=== PATIENT | female | born 1975 | race Caucasian/White ===

== ENCOUNTER 2018-02-21 19:48 | Observation (INO) | payer BC ==
[~2018-02-21] VITALS: Ht 154.9 cm; Wt 51.0 kg
--- NOTE | ~2018-02-21 | HEMODYNAMI ---
PATIENT:GRICEL GAMBLE MEDICAL RECORD: [id number] : 77 [facility] DATE: 02/21/18 Generatedon:02/22/201811:02 Patient name: GRICEL GAMBLE Patient #: [id number] SSN: : 1975 Date of study: 02/22/2018 Page: Of Hemodynamic Procedure Report Patient Data Patient Demographics Procedure consent was obtained First Name: GRICEL Gender: Female Last Name: TYE : 1975 Patient #: [id number] Age: 42 year(s) Race: Unknown Additional ID: [id number] Contact details [address]: [address] [place] [address] [address]ET State: [place] City: [place] Zip code: [address] Past Medical History Allergies: No known allergies Admission Admission Data Admission Date: 02/21/2018 Admission Time: 23:10 Room #: [facility] Lab Results Lab Result Date: 02/22/2018 Lab Result Time: 0:00 Biochemistry Name Units Result Min Max BUN mg/dl 13 --(--*-)-- 7 18 Creatinine mg/dl 0.9 --(-*--)-- 0.6 1.3 CBC Name Units Result Min Max Hemoglobin g/dl 13.4 -*(----)-- 13.5 17.5 Procedure Procedure Types Cath Procedure Diagnostic Procedure LHC LHC w/Coronaries Procedure Description Procedure Date Procedure Date: 02/22/2018 Procedure Start Time: 10:45 Procedure End Time: 10:59 Procedure Staff Name Function Jorge Alberto Cardoso MD Performing Physician Chrissy Jeong RT Monitor Norma Bauer RT Scrub Celine Sung RN Nurse Gisel Wayne RN Nurse Procedure Data Cath Procedure Fluoroscopy Diagnostic fluoroscopy Total fluoroscopy Time: 1.1 time: 1.1 min min Diagnostic fluoroscopy Total fluoroscopy dose: 114 dose: 114 mGy mGy Contrast Material Contrast Material Type Amount (ml) Isovue 300 45 Entry Location Entry Primary Successful Side Size Upsize Upsize Entry Closure Succes sful Closure Location (Fr) 1 (Fr) 2 (Fr) Remarks Device Remarks Femoral Right 5 Fr Exoseal artery Estimated blood loss: 5 ml Diagnostic catheters Device Type Used For End Catheter Placement MULTIPACK Pigtail 5 Fr Procedure catheter MULTIPACK JL 4.0 5Fr Procedure catheter MULTIPACK 3DRC 5Fr Procedure catheter Procedure Medications Medication Administration Route Dosage Oxygen etCO2 Nasal cannula 2 l/min Lidocaine 2% added to field 20 Heparin Flush Bag added to field 2 bags (1000units/500ml NS) Zofran I.V. 4 mg 0.9% NaCl I.V. bolus 250 ml Versed I.V. 1 mg Fentanyl I.V. 50 mcg Versed I.V. 1 mg Fentanyl I.V. 50 mcg Hemodynamics Rest HGB: 13.4 (g/dl) Heart Rate: 66 (bpm) Snapshots Pre Cath Intra NCS Post Cath Vital Signs Time Heart Resp SPO2 etCO2 NIBP (mmHg) Rhythm Pain Sedation Rate (ipm) (%) (mmHg) Status Level (bpm) 10:25:35 89 18 99 37.6 117/77(92) NSR 0 (11) 10(A) , No pain 10:30:09 63 13 96 25.5 103/58(73) NSR 0 (11) 10(A) , No pain 10:34:44 61 12 98 26.3 97/39(74) NSR 0 (11) 10(A) , No pain 10:39:16 59 14 98 31.5 92/43(62) NSR 0 (11) 10(A) , No pain 10:43:47 57 13 98 27.8 105/47(74) NSR 0 (11) 10(A) , No pain 10:48:17 70 14 96 21.8 112/62(95) NSR 0 (11) 9(A) , No pain 10:52:51 62 13 96 31.5 120/46(83) NSR 0 (11) 9(A) , No pain 10:58:05 87 10 96 33.8 126/52(108) NSR 0 (11) 10(A) , No pain Medications Time Medication Route Dose Verified Delivered Reason Notes Effectiveness by by 10:25:57 Oxygen etCO2 2 Jorge Alberto Berger used for Nasal l/min Janae Sung collections associate cannula 10:26:04 Lidocaine 2% added 20ml Jorge Alberto Jorge Alberto for local to vial Janae Cardoso MD anesthetic field 10:26:27 Zofran I.V. 4 mg Jorge Alberto Berger Per pt states Janae Sung RN physician nausea with medications 10:26:27 Heparin Flush added 2 Jorge Alberto Jorge Alberto used for Bag to bags Janae Cardoso MD procedure (1000units/500ml field NS) 10:36:37 0.9% NaCl I.V. 250 Jorge Alberto Berger For bolus ml Janae Sung RN hypotension 10:44:37 Versed I.V. 1 mg Jorge Alberto Gisel for Janae Wayne sedation RN 10:44:48 Fentanyl I.V. 50 Jorge Alberto Gisel for mcg Janae Wayne sedation RN 10:51:47 Versed I.V. 1 mg Jorge Alberto Gisel for Janae Wayne sedation RN 10:51:51 Fentanyl I.V. 50 Jorge Alberto Gisel for mcg Janae peña mammography supervisor Log Time Note 10:10:20 Celine Sung RN sent for patient. Start room use. 10:14:06 Time tracking: Regular hours (M-F 7:00 - 5:00) 10:14:10 Plan of Care:Hemodynamics will remain stable., Cardiac rhythm will remain stable., Comfort level will be maintained., Respiratory function will remain adequate., Patient/ family verbilizes understanding of procedure., Procedure tolerated without complication., Recovers from procedure without complications.. 10:14:12 Signed procedure consent form obtained from patient. 10:14:22 H&P Date Dictated: 02/21/2018 Within 30 days and on chart., H&P Addendum completed by physician on day of procedure. (MUST COMPLETE FOR ALL OUTPATIENTS). 10:15:14 Lab Result : BUN 13 mg/dl 10:15:14 Lab Result : Hemoglobin 13.4 g/dl 10:15:14 Lab Result : Creatinine 0.9 mg/dl 10:19:46 Patient received from CVICU to CCL 1 Alert and oriented. Tansferred to table in Supine position. 10:19:48 Warm blankets applied, and kate hugger turned on for patient comfort. 10:19:48 Correct patient and procedure confirmed by team. 10:19:49 ECG and BP/O2 sat monitors applied to patient. 10::46 Vital chart was started 10:24:47 Full Disclosure recording started 10::57 Oxygen 2 l/min etCO2 Nasal cannula was administered by Celine Sung RN; used for procedure; 10::04 Lidocaine 2% 20ml vial added to field was administered by Jorge Alberto Cardoso MD; for local anesthetic; 10::27 Zofran 4 mg I.V. was administered by Celine Sung RN; Per physician; pt states nausea with medications 10:: Heparin Flush Bag (1000units/500ml NS) 2 bags added to field was administered by Jorge Alberto Cardoso MD; used for procedure; 10:29:32 Baseline sample Acquired. 10::36 Rhythm: sinus rhythm 10::41 Pre-procedure instructions explained to patient. 10::41 Pre-op teaching completed and patient verbalized understanding. 10:29:44 Family in waiting room. 10::46 Patient NPO since Midnight. 10::52 Patient allergic to No known allergies 10::54 Is the patient allergic to Iodine/contrast media? No. 10:29:55 Is patient on blood thinner?Yes 10:30:05 PRE LOADED PLAVIX 10:30:43 Patient diabetic? No. 10:33:14 Patient not . Patient has had tubal. 10:33:33 Previous problem with sedation/anesthesia? No ? 10:33:37 Snore? No 10:33:38 Sleep apnea? No 10:33:40 Deviated septum? No 10:33:41 Opens mouth fully? Yes 10:33:41 Sticks out tongue? Yes 10:33:44 Airway obstruction? No ? 10:33:46 Dentures? No ? 10:33:49 Pre procedure: right dorsailis pedis pulse 2+ Normal; easily identifiable; not easily obliterated 10:36:11 IV patent on arrival in right hand with 0.9% NaCl at [facility]. 10:36:14 Lab results completed and on chart. 10:36:17 Right groin area was prepped with chlora-prep and draped in sterile fashion 10:36:18 Alarms reviewed by R. N. 10:36:18 Sharps counted by scrub and verified by R.N. 10:36:35 Use device set Femoral Dx 10:36:37 0.9% NaCl 250 ml I.V. bolus was administered by Celine Sung RN; For hypotension; 10:36:37 ACIST Syringe (89428) opened to sterile field. 10:36:37 Bag Decanter (2001S) opened to sterile field. 10:36:39 ACIST Hand Control (26787) opened to sterile field. 10:36:39 ACIST Manifold (30566) opened to sterile field. 10:36:40 Tegaderm 4 x 4 (1626W) opened to sterile field. 10:36:41 Medline Cath Pack ([id number]) opened to sterile field. 10:36:41 DIAGNOSTIC WIRE .035 260cm J wire (972898) opened to sterile field. 10:36:42 DIAGNOSTIC Multipack 5Fr catheter set (IO1508) opened to sterile field. 10:36:44 SHEATH Prelude 5Fr 0.035 (MFE-6F-92-035) opened to sterile field. 10:37:15 Zero performed for pressure channel P1 10:44:23 --------ALL STOP TIME OUT------ 10:44:23 Final Timeout: patient, procedure, and site verified with staff and physician. All members of the team are in agreement. 10:44:25 Right groin site verified by team. 10:44:27 Physical assessment completed. ASA score P 2 - A patient with mild systemic disease as per Jorge Alberto Cardoso MD. 10:44:29 Sedation plan: IV Moderate Sedation Medication:Versed, Fentanyl 10:44:37 Versed 1 mg I.V. was administered by Gisel Wayne RN; for sedation; 10:44:48 Fentanyl 50 mcg I.V. was administered by Gisel Wayne RN; for sedation; 10:45:31 Procedure started. 10:45:46 Local anesthetic to right femoral artery with Lidocaine 2% by Jorge Alberto Cardoso MD.INITIAL ACCESS ONLY 10:46:44 A 5 Fr sheath was inserted into the Right Femoral artery 10:46:55 A MULTIPACK Pigtail 5 Fr catheter was advanced over the wire and used for Procedure. 10:47:09 LV gram done using BARRIOS 10:47:12 Injector settings: Ml/sec: 10, Volume: 20, 10:47:48 EF : 55 % 10:47:52 Catheter removed. 10:47:57 A MULTIPACK JL 4.0 5Fr catheter was advanced over the wire and used for Procedure. 10:48:50 LCA angiography performed. 10:49:02 Catheter removed. 10:49:08 A MULTIPACK 3DRC 5Fr catheter was advanced over the wire and used for Procedure. 10:50:07 RCA angiography performed. 10:50:09 Catheter removed. 10:51:47 Versed 1 mg I.V. was administered by Gisel Wayne RN; for sedation; 10:51:51 Fentanyl 50 mcg I.V. was administered by Gisel Wayne RN; for sedation; 10:56:34 EXOSEAL 5Fr (EX500) opened to sterile field. 10:57:43 Sheath removed intact; hemostasis achieved with Exoseal to the Right Femoral artery. 10:57:46 Procedure ended.(Physican Out) 10:58:15 Fluoroscopy time 01.10 minutes. 10:58:23 Fluoroscopy dose: 114 mGy 10:58:23 Flurop Dose total: 114 10:58:26 Contrast amount:Isovue 300 45ml. 10:58:34 Sharps counted by scrub and verified by R.N. 10:58:37 Post-op/insertion site Right Femoral artery dressed using a 4 x 4 and Tegaderm. 10:58:41 Post right femoral artery:stable, soft, clean and dry 10:58:45 Post-procedure physical assessment completed. ASA score P 2 - A patient with mild systemic disease as per Jorge Alberto Cardoso MD. 10:58:52 Post procedure rhythm: sinus rhythm 10:58:55 Estimated blood loss: 5 ml 10:58:56 Post procedure instruction explained to patient.Patient verbalizes understanding. 10:58:57 Patient needs reinforcement of post procedure teaching. 10:59:27 Procedure and supply charges have been captured, reviewed, submitted and are correct. 10:59:31 Vital chart was stopped 10:59:31 See physician's report for complete and final results. 10:59:32 Report given to CVICU. 10:59:35 Patient transfered to CVICU with Bed. 10:59:37 Procedure ended. 10:59:37 Full Disclosure recording stopped 10:59:42 End room use (Document Last) Device Usage Item Name Manufacture Quantity Catalog Number Hospital Part Current M inimal Lot# / Charge Number Stock Stock Serial# Code ACIST Syringe Acist 1 57490 [id number] 275213 [id number] 2 0 (24451) [employer] Bag Decanter Microtek 1 2001S 661328 88894 800768 5 (2001S) Medical Inc. ACIST Hand Acist 1 74596 031675 703718 589690 5 Control (41684) [employer] ACIST Manifold Acist 1 15763 888538 694043 323559 5 (43361) [employer] Tegaderm 4 x 4 3M 1 1626W 041693 399519 909871 5 (1626W) Medline Cath Cardinal 1 [id number] 438079 61881 717120 5 Pack Health ([id number]) DIAGNOSTIC WIRE [facility] 1 183221 131556 384757 436817 3 0 .035 260cm J wire (895173) DIAGNOSTIC Cardinal 1 WQ9735 993469 12413 364503 3 0 Multipack 5Fr Health catheter set (EX9446) SHEATH Prelude Merit 1 [id number] 668561 349360 642352 5 5Fr 0.035 Medical ([id number]-[id number]) MULTIPACK Cardinal 1 [id number] 5 Pigtail 5 Fr Health catheter MULTIPACK JL Cardinal 1 290523 5 4.0 5Fr Health catheter MULTIPACK 3DRC Cardinal 1 [id number] 5 5Fr catheter Health EXOSEAL 5Fr Cardinal 1 EX500 689592 832229 462700 1 0 (EX500) Health Signature Audit [place] Stage Time Signature Unsigned Intra-Procedure 02/22/2018 Chrissy Jeong 11:02:34 AM RT(R) Signatures Monitor : Chrissy Jeong Signature : RT Date : Time : [id number] [place] [address]
--- NOTE | ~2018-02-21 | OP ---
PATIENT NAME: GRICEL GAMBLE MEDICAL RECORD: [id number] :77 [facility] ADMISSION DATE:02/21/18 SURGEON: LIBRADO GURROLA MD DATE OF OPERATION: 02/22/2018 PROCEDURES: 1. Left heart catheterization. 2. Selective coronary angiography. 3. Left ventriculogram. INDICATION: Non-Q-wave myocardial infarction. DESCRIPTION OF PROCEDURE: After informed consent was obtained and after detailed explanation of risks, benefits as well as alternative therapies, the patient elected to proceed with angiogram and heart catheterization. The right femoral area was prepped and draped in normal sterile fashion. Right femoral artery was cannulated via modified Seldinger technique with placement of 5-Guamanian sheath. All catheters exchanged through this sheath. FINDINGS: The left ventriculogram was performed in standard 30-degree BARRIOS view, reveals anteroapical hypokinesis. Overall ejection fraction estimated 50%. SELECTIVE CORONARY ANGIOGRAPHY: 1. Left main has no significant angiographic disease. 2. Left anterior descending has 90% stenosis in mid vessel. The first diagonal is large, has 90% stenosis proximally. The second diagonal is small to medium, has 99% stenosis proximally. 3. Left circumflex has 80% stenosis at the ostium. 4. Right coronary has 80% to 90% stenosis in mid vessel. OVERALL IMPRESSION: Severe 4-vessel coronary artery disease of the LAD, diagonal LAD, circumflex, and RCA. Evaluate for bypass surgery. TRANSINT:[id number] Voice Confirmation ID: [id number] DOCUMENT ID: [id number] LIBRADO GURROLA MD at 0924 CC: [id number] DICTATION DATE: 02/22/18 1107 ZOOLOGY TEACHER: 02/22/18 1227 DIS IN 02/22/18 [place] [address]
--- NOTE | ~2018-02-21 | DS ---
PATIENT:GRCIEL GAMBLE :77 MEDICAL RECORD: [id number] DISCHARGE SUMMARY ADMISSION DATE: 02/21/18 DISCHARGE DATE: 02/22/18 DIAGNOSES: 1. Non-Q-wave myocardial infarction. 2. Unstable angina. 3. Coronary artery disease. HOSPITAL COURSE: Ms. Gamble presents with chest pain, rules in for a non-Q-wave myocardial infarction, underwent cardiac catheterization revealing hypokinesis of the anterior apex, severe disease of the first LAD diagonal, second LAD diagonal, LAD, circumflex ostium, and RCA. Options for bypass surgery here were undertaken; however, she may have a possible incomplete revascularization in need for transmyocardial laser therapy, which can be only performed at [facility]. She is hence transferred to [facility] under the care of Dr. Graham, cardiac surgeon there. TRANSINT:[id number] Voice Confirmation ID: [id number] DOCUMENT ID: [id number] LIBRADO GURROLA MD at 0924 CC: [id number] DICTATION DATE: 02/22/18 1152 CREATIVE SPECIALIST: 02/22/18 1308 DIS IN 02/22/18 [place] [id number] [place] [id number]
[2018-02-21 21:03] LABS: BASOPHILS 0.7 % (0-2); EOSINOPHILS 0.9 % (0-7); HEMOGLOBIN 13.4 g/dL (12-16); MCHC 34.4 g/dL (31.0-37.0); MCV 93.1 fL (80.0-100.0); MEAN PLATELET VOLUME 11.3 fL (7.4-10.4); MONOCYTES 11.6 % (2-11); NEUTROPHILS 71.8 % (40-80); PLATELET COUNT 145 10x3/uL (130-400); RBC 4.19 10x6/uL (4.00-5.40); WBC 5.9 10x3/uL (4.8-10.8)
[2018-02-21 21:21] LABS: ALBUMIN 3.7 g/dL (3.4-5.0); ALKALINE PHOSPHATASE 76 U/L (46-116); ALT (SGPT) 19 U/L (10-68); BILIRUBIN - TOTAL 0.21 mg/dL (0.2-1.3); CALC OSMOLALITY 279 mosm/kg (275-300); CALCIUM 9.3 mg/dL (8.5-10.1); CARBON DIOXIDE 27.1 mmol/L (21.0-32.0); CHLORIDE - SERUM 106 mmol/L (98-107); CREATININE - SERUM 0.9 mg/dL (0.6-1.3); GLUCOSE 110 mg/dL (74-106); POTASSIUM - SERUM 3.8 mmol/L (3.5-5.1); PROTEIN - SERUM 7.1 g/dL (6.4-8.2); SODIUM 140 mmol/L (136-145); UREA NITROGEN 13 mg/dL (7-18); eGFR NON AFRICAN AMERICAN 73 mL/min (90-120)
[2018-02-21 21:39] LABS: CREATINE KINASE 339 UL (21-215)
[2018-02-21 21:45] LABS: TROPONIN-I 6.325 ng/mL (0.000-0.060)
[2018-02-21 22:48] VITALS: BP 148/89
[2018-02-21 23:42] VITALS: BP 149/85; BMI 21.2
[2018-02-21 23:45] VITALS: BP 149/85
[2018-02-22] VITALS (18 sets, daily range): BP systolic 95–152; BP diastolic 47–91; Ht 154.9 cm; Wt 51.0 kg
[2018-02-22 03:43] LABS: CKMB 25.3 U/L (0.0-3.6); CREATINE KINASE 385 UL (21-215)
[2018-02-22 03:48] LABS: TROPONIN-I 13.579 ng/mL (0.000-0.060)
[2018-02-22 09:38] LABS: BASOPHILS 0.3 % (0-2); EOSINOPHILS 0.7 % (0-7); HEMATOCRIT 35.8 % (36.0-48.0); HEMOGLOBIN 12.2 g/dL (12-16); IMMATURE GRANULOCYTES 0.1 % (0-5); LYMPHOCYTES 13.7 % (15-50); MCH 31.6 pg (26.0-34.0); MCHC 34.1 g/dL (31.0-37.0); MCV 92.7 fL (80.0-100.0); MEAN PLATELET VOLUME 11.1 fL (7.4-10.4); MONOCYTES 7.3 % (2-11); NEUTROPHILS 77.9 % (40-80); PLATELET COUNT 137 10x3/uL (130-400); RBC 3.86 10x6/uL (4.00-5.40); RDW 13.1 % (11.5-14.5)
[2018-02-22 09:45] LABS: WBC 7.4 10x3/uL (4.8-10.8)
[2018-02-22 10:18] LABS: CALCIUM 8.1 mg/dL (8.5-10.1); CARBON DIOXIDE 25.1 mmol/L (21.0-32.0); CHLORIDE - SERUM 108 mmol/L (98-107); CKMB 18.2 U/L (0.0-3.6); CREATINE KINASE 346 UL (21-215); CREATININE - SERUM 0.8 mg/dL (0.6-1.3); GLUCOSE 101 mg/dL (74-106); POTASSIUM - SERUM 3.9 mmol/L (3.5-5.1); SODIUM 139 mmol/L (136-145); eGFR NON AFRICAN AMERICAN 84 mL/min (90-120)
[2018-02-22 10:19] LABS: CALC OSMOLALITY 276 mosm/kg (275-300); UREA NITROGEN 9 mg/dL (7-18)
[2018-02-22 10:20] LABS: TROPONIN-I 11.038 ng/mL (0.000-0.060)
== END 2018-02-22 14:45 | disposition short-term general hospital (02) ==
LOC: D.ER 19:48 → D.CVICU 23:10 → OBSVTIME 23:10 → D.CVICU 23:10
PROVIDERS: Family Medicine; Internal Medicine Interventional Cardiology
DX: I21.4 Non-ST elevation (NSTEMI) myocardial infarction (principal); F17.200 Nicotine dependence, unspecified, uncomplicated; Z82.49 Family history of ischemic heart disease and other diseases of the circulatory system; I25.10 Atherosclerotic heart disease of native coronary artery without angina pectoris

== ENCOUNTER → 2020-07-30 19:49 | Outpatient (CLI) | payer BC ==
[2018-02-22 13:09] VITALS: BMI 21.2
[2020-07-30 21:22] LABS: CHOL - HDL RATIO 3.7 ratio (2.3-4.1); LDL-HDL RATIO 2.1 ratio (1.5-3.5)
== END | disposition home or self-care (01) ==
LOC: D.LABREF 19:49
PROVIDERS: ATTEND Internal Medicine Cardiovascular Disease
DX: E78.5 Hyperlipidemia, unspecified (principal)

== ENCOUNTER → 2020-10-29 19:34 | Outpatient (CLI) | payer BC ==
[2018-02-22 13:09] VITALS: BMI 21.2
[2020-10-29 19:59] LABS: CHOL - HDL RATIO 3.6 ratio (2.3-4.1)
== END | disposition home or self-care (01) ==
LOC: D.LABREF 19:34
PROVIDERS: ATTEND Nurse Practitioner
DX: E78.5 Hyperlipidemia, unspecified (principal)